=== PATIENT | female | born 2000 ===

== ENCOUNTER → 2023-04-26 08:16 | Outpatient (CLI) | payer BC, SELFPAY ==
--- NOTE | ~2023-04-26 | MR_ITS ---
MRI of the lumbar spine Clinical History: Back pain Technique: Axial T2-weighted images, and sagittal T1-weighted, T2-weighted, and T2 fat-sat images wer e acquired. Findings: There is no fracture or subluxation of the lumbar spine. Vertebral bodies maintain normal h eight and alignment. No suspicious bone marrow signal abnormality seen. At L1-L2, L2-L3, L3-L4, L4-L5, there is no disc bulge or herniation. Intervertebral discs maintain no rmal signal and position at these levels. No spinal canal stenosis or neural foraminal narrowing at t hese levels. At L5-S1, there is degenerative disc narrowing with minimal disc bulge and mild facet arthropathy. No central canal stenosis or neural foraminal narrowing. Paravertebral soft tissues are unremarkable. Impression: Minimal degenerative spondylosis at L5-S1. Reviewed, dictated and finalized at [facility]. Impression: Minimal degenerative spondylosis at L5-S1.
== END ==
DX: M54.50 Low back pain, unspecified (principal); M43.06 Spondylolysis, lumbar region
CPT/HCPCS: 72148